=== PATIENT | male | born 1960 | race Hispanic/Latino ===

== ENCOUNTER 2024-08-14 11:41 | Outpatient (CLI) | payer MEDICARE, OTHER | END 2024-08-14 11:42 | disposition home or self-care (01) | LOC: NAV RAD 11:41 | PROVIDERS: ATTEND Family Medicine | DX: M47.26 Other spondylosis with radiculopathy, lumbar region (principal); G62.9 Polyneuropathy, unspecified | CPT/HCPCS: 72100 ==